=== PATIENT | female | born 1970 ===

== ENCOUNTER 2025-03-09 06:18 | Day surgery (SDC) | payer OTHER, SELFPAY | END 2025-03-09 11:53 | disposition home or self-care (01) | LOC: GI 06:18 | PROVIDERS: ATTENDING PHYSICIAN Internal Medicine Gastroenterology | DX: Z12.11 Encounter for screening for malignant neoplasm of colon (principal); D12.2 Benign neoplasm of ascending colon; D12.3 Benign neoplasm of transverse colon; Q43.8 Other specified congenital malformations of intestine; K56.2 Volvulus; G25.81 Restless legs syndrome | CPT/HCPCS: 45385; 45381; 88305 ==